=== PATIENT | male | born 1945 | race Caucasian/White ===

== ENCOUNTER 2018-01-11 12:45 | Day surgery (SDC) | payer OTHER ==
[~2018-01-11] VITALS: Ht 172.7 cm; Wt 81.7 kg
[~2018-01-11 12:45] MED LIST: LISINOPRIL-HCT1 EAC3 PO; NAPROSYN500 MG PO
[2018-01-11 14:10] LABS: CHLORIDE 106 MEQ/L (99-109); GFR ESTIMATE (CALCULATED) > 59 mL/min/ (58.99-99999); GLUCOSE 88 mg/dL (70-99); SODIUM 140 MEQ/L (136-147); UREA NITROGEN (BUN) 16 mg/dL (9-23)
== END 2018-01-11 14:20 | disposition home or self-care (01) ==
LOC: PAIN 12:45 → SDC 13:30 → PAIN 14:20
PROVIDERS: Anesthesiology Pain Medicine
DX: M16.12 Unilateral primary osteoarthritis, left hip (principal); G89.29 Other chronic pain; M25.552 Pain in left hip; I10 Essential (primary) hypertension; L30.9 Dermatitis, unspecified; Z91.013 Allergy to seafood
CPT/HCPCS: 80048; 93005; J1030; J2250; S0020